=== PATIENT | male | born 1960 | race African-American/Black ===

== ENCOUNTER → 2025-06-05 | Outpatient (CLI) | payer OTHER | END | disposition home or self-care (01) | LOC: RAD 11:37 | PROVIDERS: ATTEND Physician Assistant | DX: M19.042 Primary osteoarthritis, left hand (principal); M25.742 Osteophyte, left hand; M79.642 Pain in left hand; Z00.00 Encounter for general adult medical examination without abnormal findings | CPT/HCPCS: 73130-LT ==